=== PATIENT | female | born 1975 | race Two or more races ===

== ENCOUNTER 2017-05-22 13:56 | Emergency (ER) | payer OTHER ==
[2017-05-22 14:07] VITALS: RESP 18; O2SAT 97
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
[2017-05-22 15:44] VITALS: BP 115/70; PULSE 98; TEMP 98.6
== END 2017-05-22 15:44 | disposition home or self-care (01) ==
LOC: EDUNIT#
DX: S16.1XXA Strain of muscle, fascia and tendon at neck level, initial encounter (principal); S29.019A Strain of muscle and tendon of unspecified wall of thorax, initial encounter; V49.40XA Driver injured in collision with unspecified motor vehicles in traffic accident, initial encounter; Y92.410 Unspecified street and highway as the place of occurrence of the external cause; Y99.8 Other external cause status; Y93.89 Activity, other specified